=== PATIENT | male | born 1980 | race Caucasian/White ===

== ENCOUNTER 2018-09-28 10:46 | Emergency (ER) | payer OTHER ==
[2018-09-28] MEDS ORDERED: LR(*) 1000 ML BAG 2,400 ML IV ONE (11:25)
--- NOTE | 2018-09-28 11:43 | ER Report ---
History and Physical Time Seen By MD: 10:50 HPI/ROS CHIEF COMPLAINT: Lightheaded, abdominal pain, chest pain HISTORY OF PRESENT ILLNESS: 38-year-old male states that he has been feeling generally weak since yesterday at about 1 PM. He reports that he does not know exactly why this is happening but feels dehydrated. Since that time he is begin kaitlynn to drink more water but has not felt any better. Patient also states he has had sharp intermittent left upper quadrant pain since yesterday. Pain radiates around to the right. Pain lasts seconds to minutes to hours. Pain is present current and is 6 out of 10. Patient has never had this pain before. Patient also reports right lower thoracic chest pain. This pain is intermittent as well. This pain began yesterday at 1 PM. He does not feel pain in chest is clearly related to the abdominal pain. Patient also notices some shortness of breath on exertion. He has had no swelling or pain in his legs. He has had no recent travel. He has had no prior cardiac or blood clotting problems. He has had no recent illness. Patient is not short of breath at rest. He has mild nausea but no vomiting. He hasn't no burning with urination. He states urine was dark yesterday but it's been slightly improved as he was drinking more fluids today. Patient has had no constipation or diarrhea. He does have diabetes and said his sugars haven been somewhat hard to control recently. Prior appendectomy. No other surgeries REVIEW OF SYSTEMS: Constitutional: No fever, no chills. Eyes: No discharge. ENT: No sore throat. Cardiovascular: above Respiratory: above Gastrointestinal: above Genitourinary: no dysuria Musculoskeletal: No back pain. Skin: No rashes. Neurological: above Remainder of the 14 system rev: Yes Home Meds Reported Medications [blood pressure] No Conflict Check 09/28/18 Metformin Hcl (METFORMIN HCL) 500 Mg Tablet, 1 TAB PO BID, TAB 09/28/18 Insulin Glargine (LANTUS) 100 Unit/Ml Soln, 100 UNIT SUBQ, ML 09/28/18 Reviewed Nurses Notes: Yes Hx Smoking: No Constitutional Vital Sign - Last 24 Hours 09/28/18 09/28/18 09/28/18 09/28/18 11:00 11:05 11:07 11:08 Pulse ??? B/P (MAP) 107/69 (82) 110/71 (84) 100/68 (79) 80/58 (65) Pulse Ox 96 09/28/18 09/28/18 09/28/18 09/28/18 11:16 11:30 12:00 12:30 Pulse 79 80 90 93 107 Resp 11 6 10 B/P (MAP) 110/71 (84) /??? /??? /??? 100/68 (79) 80/58 (65) Pulse Ox 80 93 74 09/28/18 09/28/18 09/28/18 09/28/18 13:00 13:30 16:30 16:45 Pulse 83 91 88 Resp 16 12 16 B/P (MAP) 96/65 (75) 92/63 (73) 102/63 (76) 106/73 (84) Pulse Ox 93 94 91 09/28/18 09/28/18 09/28/18 09/28/18 17:00 17:05 17:30 17:35 Pulse 90 92 88 Resp 14 15 18 B/P (MAP) 94/62 (73) 112/70 (84) Pulse Ox 90 95 94 09/28/18 09/28/18 18:00 18:05 Pulse 81 Resp 11 B/P (MAP) 121/76 (91) Pulse Ox 95 Intake and Output 09/28/18 09/28/18 09/29/18 15:02 23:02 07:02 Intake Total 1000 ml 1000 ml Balance 1000 ml 1000 ml Physical Exam General Appearance: The patient is alert, has no immediate need for airway protection and no signs of toxicity. Eyes: Pupils equal and round no pallor or injection. ENT, Mouth: Mucous membranes are moist. Respiratory: There are no retractions, lungs are clear to auscultation. Cardiovascular: Regular rate and rhythm. no m/r/g Gastrointestinal: luq ttp reproduces pain. Pt also has bilat lower abd quadrant ttp Neurological: alert, moves all ext Skin: Warm and dry, no rashes. Musculoskeletal: Extremities are nontender, nonswollen and have full range of motion. DIFFERENTIAL DIAGNOSIS: After history and physical exam differential diagnosis was considered for sepsis, kidney stone, acs, pe, pneumonia, dehydration, dka, electrolyte abnromality, or other emergent cause of symptoms. Medical Decision Making Data Points Result Diagram: 09/28/18 1145 09/28/18 1145 Laboratory Hematology Test 09/28/18 11:45 White Blood Count 5.0 k/uL (4.5-11.0) Red Blood Count 4.58 M/uL (4.00-5.60) Hemoglobin 13.3 g/dL (14.0-18.0) L Hematocrit 38.4 % (42.0-52.0) L Mean Corpuscular Volume 83.7 fL (80.0-96.0) Mean Corpuscular Hemoglobin 29.0 pg (26.0-33.0) Mean Corpuscular Hemoglobin Concent 34.6 g/dL (32.0-36.0) Red Cell Distribution Width 13.2 % (11.5-14.5) Platelet Count 192 K/uL (150-450) Mean Platelet Volume 9.6 fL (7.2-11.1) Neutrophils (%) (Auto) 54.5 % (39.4-72.5) Lymphocytes (%) (Auto) 34.9 % (17.6-49.6) Monocytes (%) (Auto) 7.8 % (4.1-12.4) Eosinophils (%) (Auto) 2.2 % (0.4-6.7) Basophils (%) (Auto) 0.6 % (0.3-1.4) Nucleated RBC Relative Count (auto) 0.1 /100WBC Neutrophils # (Auto) 2.7 K/uL (2.0-7.4) Lymphocytes # (Auto) 1.7 K/uL (1.3-3.6) Monocytes # (Auto) 0.4 K/uL (0.3-1.0) Eosinophils # (Auto) 0.1 K/uL (0.0-0.5) Basophils # (Auto) 0.0 K/uL (0.0-0.1) Nucleated RBC Absolute Count (auto) 0.01 K/uL Chemistry Test 09/28/18 11:45 Sodium Level 139 mmol/L (137-145) Potassium Level 4.2 mmol/L (3.5-5.0) Chloride Level 103 mmol/L (98-107) Carbon Dioxide Level 24 mmol/L (22-30) Blood Urea Nitrogen 21 mg/dl (9-21) Creatinine 0.80 mg/dl (0.66-1.25) Glomerular Filtration Rate Calc > 60.0 Random Glucose 121 mg/dl (75-110) Lactate 1.2 mmol/L (0.7-2.1) Calcium Level 10.2 mg/dl (8.4-10.2) Total Bilirubin 1.9 mg/dl (0.2-1.3) Aspartate Amino Transf (AST/SGOT) 20 U/L (0-35) Alanine Aminotransferase (ALT/SGPT) 36 U/L (0-56) Alkaline Phosphatase 71 U/L (0-126) Troponin I < 0.012 ng/ml Total Protein 7.5 g/dl (6.3-8.2) Albumin 4.4 g/dl (3.5-5.0) Coagulation Test 09/28/18 11:45 D-Dimer Quantitative (PE/DVT) < 0.27 ug/ml (0-0.50) Urinalysis Test 09/28/18 14:40 Urine Color Yellow Urine Clarity Clear Urine pH 5.0 pH (4.8-9.5) Urine Specific [place] 1.012 Urine Protein Negative mg/dL (NEGATIVE) Urine Glucose (UA) Negative mg/dL (NEGATIVE) Urine Ketones Negative mg/dL (NEGATIVE) Urine Blood Negative (NEGATIVE) Urine Nitrite Negative (NEGATIVE) Urine Bilirubin Negative (NEGATIVE) Urine Urobilinogen Negative mg/dL (0.2-1.9) Urine Leukocyte Esterase Negative (NEGATIVE) Urine RBC 1 /HPF (0-2/HPF) Urine WBC 1 /HPF (0-5/HPF) Urine Squamous Epithelial Cells Many /LPF (</=FEW) Urine Bacteria Negative /HPF (NONE-FEW) Urine Mucus Few /HPF (NONE-FEW) EKG/Imaging EKG Interpretation 12 lead EKG: Rhythm: Normal sinus rhythm [place]: Normal QRS: Normal ST segments: Normal Monitor Interpretation: Normal Sinus Rhythm ED Course/Re-evaluation ED Course 38 m, diabetic, presents with hypotension, and feels dehydrated. He c/o abd pain, initially thought to be c/w renal etiology, but ua/ct unremarkable. Considered sepsis, aortic emergency, dvt/pe, or other cause of hypotension. However, there are no findings c/w above; pt responds to IVF and is asymptomatic after treatment, evaluation, and observation. Pt informed about adrenal lipoma. He has no pain on reassessment. Ultimately I do not see clear etiology, but pt is comfortable, so d/c with SRP's reasonable. Decision to Disposition Date: Sep 28, 2018 Decision to Disposition Time: 18:03 Depart Departure Latest Vital Signs Vital Signs Date Time Temp Pulse Resp B/P (MAP) Pulse Ox O2 Delivery O2 Flow Rate FiO2 09/28/18 18:05 81 11 95 09/28/18 18:00 121/76 (91) Impression: Primary Impression: Hypotension Additional Impression: Dehydration Condition: Improved Disposition: HOME OR SELF-CARE Patient Instructions: Dehydration (ED), Hypotension (ED) Additional Instructions: as we discussed, while I do not find a clear cause of your dehydration and low blood pressure, as you have improved significantly, it is reasonable to go home. Please return immediately for worsening pain, return of symtoms, or any concerns. Hydrate as we discussed, and I recommend taking off work for the next 2 days to recover. Problem Qualifiers Primary Impression: Hypotension Hypotension type: unspecified hypotension type Qualified Codes: I95.9 - Hypotension, unspecified TOREY NEFF MD Sep 28, 2018 11:43
--- NOTE | 2018-09-28 11:51 | EKG ---
FACILITY: [facility] - [place] PATIENT NAME: MINERVA ROGERS : [id number] MR: [id number] V: [id number] EXAM DATE: ORDERING PHYSICIAN: TOREY NFEF TECHNOLOGIST: YAMEL Test Reason : SOB Blood Pressure : / mmHG Vent. Rate : 085 BPM Atrial Rate : 085 BPM P-R Int : 164 ms QRS Dur : 096 ms QT Int : 344 ms P-R-T Axes : 053 004 036 degrees QTc Int : 409 ms Normal sinus rhythm Normal ECG No previous ECGs available Confirmed by Roderick Garcia ([id number]) on 09/28/2018 10:36:55 PM Referred By: TAWANDA Confirmed By:Roderick Chavez
[2018-09-28 12:07] LABS: PLATELET COUNT, AUTOMATED 192 K/uL (150-450)
[2018-09-28] MEDS ORDERED: METF-450 PO (12:32)
[2018-09-28] MEDS ORDERED: LANI SUBQ (12:32)
[2018-09-28] MEDS ORDERED: blood pressure (12:32)
--- NOTE | 2018-09-28 13:10 | RADIOLOGY IMAGING REPORT ---
FACILITY: [facility] - [place] PATIENT NAME: Yahir Velasco : 1980 MR: [id number] V: [id number] EXAM DATE: ORDERING PHYSICIAN: TOREY NEFF TECHNOLOGIST: Location: [facility] Patient: Yahir Velasco : 1980 Visit/Account:[id number] Date of Sevice: 09/28/2018 Exam type: CHEST SINGLE AP History: chest pain Comparison: None. Findings: The lungs are free of acute effusions, infiltrates or edema. The cardiac silhouette is normal in siz e. The trachea is in midline. Visualized bones are unremarkable for age IMPRESSION: 1. No acute cardiopulmonary process is seen Report Dictated By: Jenise Menard MD at 09/28/2018 1:02 PM Report E-Signed By: Jenise Menard MD at 09/28/2018 1:03 PM [id number]
[2018-09-28] MEDS ORDERED: KETOROLAC 15 MG/ML VIAL IVP ONE (13:50)
[2018-09-28] MEDS ORDERED: IOPAMIDOL 76% 100 ML INFUS BTL 100 ML ONE (15:55)
--- NOTE | 2018-09-28 16:56 | RADIOLOGY IMAGING REPORT ---
FACILITY: [facility] PATIENT NAME: Yahir Velasco : 1980 MR: [id number] V: [id number] EXAM DATE: ORDERING PHYSICIAN: TOREY NEFF TECHNOLOGIST: Location: [facility] [place] Patient: Yahir Velasco : 1980 Visit/Account:[id number] Date of Sevice: 09/28/2018 EXAMINATION: CT abdomen and pelvis with IV contrast HISTORY: Left-sided pain TECHNIQUE: Axial CT images of the abdomen and pelvis were obtained with IV contrast, with coronal a nd sagittal 2D reconstructed images. One of the following dose optimization techniques was utilized in the performance of this exam: Autom ated exposure control; adjustment of the mA and/or kV according to the patient's size; or use of an i terative reconstruction technique. Specific details can be referenced in the facility's radiology C T exam operational policy. Contrast: 75 mL of IV Isovue-370. COMPARISON: None. FINDINGS: Liver: Negative. Gallbladder and bile ducts: Negative. Spleen: Negative. Pancreas: Negative. Adrenal glands: There is a fat density mass arising from the left adrenal gland measuring up to 4.3 x 3.3 cm, compatible with an adrenal myelolipoma. The right adrenal gland is unremarkable. Kidneys: Normal size and morphology of both kidneys. No urinary calculi or hydronephrosis. Normal co urse and caliber of the ureters. Bowel and peritoneum: There are a few scattered colonic diverticula without evidence of diverticulit is. Small bowel and colon are normal in caliber. No localized bowel wall thickening. The appendix is surgically absent. No free fluid or free intraperitoneal air. Pelvic structures: There is suggestion mild diffuse wall thickening of the urinary bladder which is currently mostly decompressed. This could be partially artifactual related to the decompressed odin ure of the urinary bladder but should be correlated with any clinical and/or laboratory evidence for urinary infection. Unremarkable prostate. Lymph node assessment: Negative. Vessels: Negative. Musculoskeletal: Negative. Body wall: Negative. Lung bases: Slight scarring or atelectasis at the lung bases. IMPRESSION: 1. There is mild wall thickening of the decompressed urinary bladder. This could be artifactual relat ed to the decompressed nature of the bladder but should be correlated with any clinical and/or labora tory evidence for urinary infection. 2. No other acute intra-abdominal findings. No specific cause of left-sided pain is identified. 2. There are a few scattered colonic diverticula without evidence of diverticulitis. 4. 4.3 cm left adrenal myelolipoma. 5. Prior appendectomy. Report Dictated By: Kenyon Alicia MD at 09/28/2018 4:42 PM Report E-Signed By: Kenyon Alicia MD at 09/28/2018 4:50 PM WSN:[id number]
[2018-09-28] MEDS ORDERED: LR(*) 1000 ML BAG 1,000 ML VA PRN (17:25)
[2018-09-28 18:00] VITALS: BP 121/76
== END 2018-09-28 18:20 | disposition home or self-care (01) ==
LOC: ER 11:13
DX: I95.9 Hypotension, unspecified (principal); E86.0 Dehydration
CPT/HCPCS: 71045; 74177; 81001; 82803; 83605; 84484; 85025; 85379; 93005; 96361; 96374; 99284; J1885; J7120; Q9967; 82040; 82247; 82310; 82374; 82435; 82565; 82947; 84075; 84132; 84155; 84295; 84450; 84460; 84520